=== PATIENT | female | born 1995 | race Caucasian/White ===

== ENCOUNTER 2017-01-04 20:15 | Emergency (ER) | payer OTHER ==
[~2017-01-04] VITALS: Ht 152.4 cm; Wt 54.1 kg
[~2017-01-04 20:15] MED LIST: ACET500C5 PO; ALBU8.5H3 INH; CEPH-443 PO; PRENAT PO
[2017-01-04 20:21] VITALS: Ht 152.4 cm; Wt 54.1 kg
[2017-01-04] MEDS ORDERED: ACETAMINOPHEN 500 MG TAB PO STA (21:04)
[2017-01-04 21:46] LABS: BASOPHIL # 0.1 10^3/ul (0.0-0.1); EOSINOPHILS # 0.1 10^3/ul (0.0-0.5); EOSINOPHILS % 1.4 % (0.0-7.0); HEMATOCRIT 35.3 % (37.0-47.0); LYMPHOCYTES # 1.2 10^3/ul (0.8-2.9); LYMPHOCYTES % 15.8 % (18.0-55.0); MEAN CORPUSCULAR HEMOGLOBIN 30.9 pg (29.0-33.0); MEAN PLATELET VOLUME 10.4 fl (7.4-10.4); MONOCYTE # 0.5 10^3/ul (0.3-0.9); MONOCYTES % 5.9 % (0.0-13.0); NEUTROPHIL # 5.9 10^3/ul (1.6-7.5); NEUTROPHILS % 75.6 % (30.0-74.0); PLATELET COUNT 185 10^3/UL (140-415); RED BLOOD COUNT 3.88 10^6/ul (4.20-5.40); RED CELL DISTRIBUTION WIDTH 12.6 % (11.5-14.5); WHITE BLOOD COUNT 7.9 10^3/ul (4.8-10.8)
--- NOTE | 2017-01-04 21:46 | ERD ---
ER Documentation Chief Complaint Date/Time DATE: 01/04/17 TIME: 21:39 Chief Complaint abdominal pain x 1 day, states 16 weeks HPI 21-year-old female presents to emergency department for complaints of lower abdominal pain started today. Patient describes the pain as cramping pain, 6/ 10 scale, not better or worse with anything. Patient is 1 para 0 0. Patient is approximately 16 weeks . Patient denies any vaginal bleeding. Patient denies any flank pain. Patient denies any fever or chills. Patient denies any nausea or vomiting. ROS All systems reviewed and are negative except as per history of present illness. Medications Home Meds Active Scripts Multivit/Min/Fol Ac/Iron/Pren* ( S*) 1 Tab Tab, 1 TAB PO DAILY, #30 TAB Prov:FARZANEH HICKS 11/29/16 Acetaminophen* (Tylophen*) 500 Mg Capsule, 1 CAP PO Q6H Y for PAIN AND OR ELEVATED TEMP, #20 CAP Prov:FARZANEH HICKS 11/29/16 Cephalexin* (Keflex*) 500 Mg Capsule, 500 MG PO QID for 5 Days, CAP Prov:MARAHILABANPHILLIPAR F 11/29/16 Reported Medications Albuterol Sulfate* (Proair HFA*) 8.5 Gm Hfa.aer.ad, 2 PUFF INH Q4H Y for WHEEZING AND SOB, INH 01/03/14 Cephalexin* (Keflex*) 500 Mg Capsule, 500 MG PO TID, CAP 01/03/14 Allergies Allergies: Coded Allergies: No Known Allergy (Unverified , 01/04/17) PMhx/Soc Medical and Surgical Hx: pt denies Medical Hx, pt denies Surgical Hx History of Surgery: No (KIDNEY) Hx Miscellaneous Medical Probl: No Hx Alcohol Use: No Hx Substance Use: No Hx Tobacco Use: No Smoking Status: Never smoker FmHx Family History: No coronary disease, No diabetes, No other Physical Exam Vitals Vital Signs Date Time Temp Pulse Resp B/P Pulse Ox O2 Delivery O2 Flow Rate FiO2 01/04/17 20:21 99.1 100 20 134/74 100 Physical Exam GENERAL: The patient is well developed and appropriate for usual state of health, in no apparent distress. CHEST: Clear to auscultation bilaterally. There are no rales, wheezes or rhonchi. HEART: Regular rate and rhythm. No murmurs, clicks, rubs or gallops. No S3 or S4. ABDOMEN: Soft, nontender and nondistended. Good bowel sounds. No rebound or guarding. No gross peritonitis. No gross organomegaly or masses. No Pollock sign or McBurney point tenderness. BACK: No midline or flank tenderness. EXTREMITIES: Equal pulses bilaterally. There is no peripheral clubbing, cyanosis or edema. No focal swelling or erythema. Full range of motion. Grossly neurovascularly intact. NEURO: Alert and oriented. Cranial nerves 2-12 intact. Motor strength in all 4 extremities with 5/5 strength. Sensation grossly intact. Normal speech and gait. SKIN: There is no apparent rash or petechia. The skin is warm and dry. HEMATOLOGIC AND LYMPHATIC: There is no evidence of excessive bruising or lymphedema. No gross cervical, axillary, or inguinal lymphadenopathy. Result Diagram: 01/04/172116 Results 24 hrs Laboratory Tests Test 01/04/17 21:17 White Blood Count 7.910^3/ul Red Blood Count 3.8810^6/ul Hemoglobin 12.0g/dl Hematocrit 35.3% Mean Corpuscular Volume 91.0fl Mean Corpuscular Hemoglobin 30.9pg Mean Corpuscular Hemoglobin Concent 34.0g/dl Red Cell Distribution Width 12.6% Platelet Count 49038^3/UL Mean Platelet Volume 10.4fl Neutrophils % 75.6% Lymphocytes % 15.8% Monocytes % 5.9% Eosinophils % 1.4% Basophils % 1.0% Nucleated Red Blood Cells % 0.0/100WBC Neutrophils # 5.910^3/ul Lymphocytes # 1.210^3/ul Monocytes # 0.510^3/ul Eosinophils # 0.110^3/ul Basophils # 0.110^3/ul Nucleated Red Blood Cells # 0.010^3/ul Urine Color YELLOW Urine Clarity CLEAR Urine pH 6.0 Urine Specific Munson 1.010 Urine Ketones TRACEmg/dL Urine Nitrite NEGATIVEmg/dL Urine Bilirubin NEGATIVEmg/dL Urine Urobilinogen NEGATIVEmg/dL Urine Leukocyte Esterase NEGATIVELeu/ul Urine Hemoglobin NEGATIVEmg/dL Urine Glucose NEGATIVEmg/dL Urine Total Protein NEGATIVEmg/dl Beta HCG, Quantitative 74873.0mIU/ml Current Medications Medications (Trade) Dose Ordered Sig/Karina Route PRN Reason Start Time Stop Time Status Last Admin Dose Admin Acetaminophen (Tylenol Tab) 500 mg ONCE STAT PO 01/04/17 21:04 01/04/17 21:05 DC 01/04/17 21:16 Patient was given medication for pain here in emergency department, after treatment, patient verbalized feeling much better. Patient's pain is improved. PROCEDURE: ULTRASOUND OBSTETRICAL CLINICAL INDICATION: 21-year-old female with pelvic pain. TECHNIQUE: Multiple sonographic images of the pelvis were obtained. The images were reviewed on a PACS workstation. COMPARISON: No prior studies are available for comparison. FINDINGS: The cervix is not well visualized. There is a single viable intrauterine gestation. Cardiac activity is present with 136 beats per minute. There is a vertex presentation. Measurements were made in order to determine age. The results are as follows: BPD = 3.58 cm, HC = 12.66 cm, AC = 10.49 cm, FL = 1.96 cm. This yields and estimated gestational age of approximately 16 weeks 3 days. The estimated date of delivery is June 18, 2017. The EFW = 148 +/- 22 g. The GP is 73%. The placenta is posterior. There is no evidence for an abruption or placenta previa. There is a an adequate amount of amniotic fluid with a maximal vertical pocket of 3.7 cm. IMPRESSION: Single viable intrauterine gestation of approximately 16 weeks 3 days. The estimated date of delivery is June 18, 2017. .Manjeet Wild MD, MD Date Time Electronically viewed and signed by .Manjeet Wild MD, on 01/05/2017 00:30 .M/ CC: JULIO ROTHMAN TOP PRECIPITATOR OPERATOR HELPER Procedures/MDM Medical Decision Making: Patient symptoms most likely is consistent with the growing , possible musculoskeletal pain. No leukocytosis, no bandemia , patient does not have any fever. Low suspicion for any acute abdominal process. Patient's ultrasound shows a viable . No urinary tract infection noted. There is low suspicion for abdominal emergencies at this time. Patients abdominal exam is normal at this time. Patients radiology exam does not show any abdominal emergencies at this time. There is low suspicion for appendicitis, cholecystitis, abdominal aortic aneurysms or peritonitis at this time. There is low suspicion for sepsis. Patient appears well and is hemodynamically stable. Disposition: Home. Condition: Stable Prescription Tylenol Instructions: Patient is advised to take medications as prescribed. Patient is advised to rest, increase fluid intake and do brat diet for next 1-2 days and progress as tolerated. Patient is advised that if symptoms are worse, severe abdominal pain, uncontrolled vomiting, high fever, severe flank pain, worst signs and symptoms, to return to the emergency department immediately. Otherwise, patient can follow up with OB doctor within 1-2 days. Disclaimer: Inadvertent spelling and grammatical errors are likely due to EHR/ dictation software use and do not reflect on the overall quality of patient care. Also, please note that the electronic time recorded on this note does not necessarily reflect the actual time of the patient encounter. Departure Diagnosis: Primary Impression: Pelvic pain Condition: Stable Patient Instructions: Pelvic Pain In : Unclear (2-3 Trimester) Additional Instructions: Patient is advised to take medications as prescribed. Patient is advised to rest , increase fluid intake and do brat diet for next 1-2 days and progress as tolerated. Patient is advised that if symptoms are worse, severe abdominal pain , uncontrolled vomiting, high fever, severe flank pain, worst signs and symptoms , to return to the emergency department immediately. Otherwise, patient can follow up with OB doctor within 1-2 days. JULIO ROTHMAN NP Jan 04, 2017 21:45
[2017-01-04 21:47] LABS: ADD UMIC NO; UR ASCORBIC ACID NEGATIVE (NEGATIVE); UR BILIRUBIN (Dip) NEGATIVE (NEGATIVE); UR BLOOD (Dip) NEGATIVE (NEGATIVE); UR CLARITY CLEAR (CLEAR); UR COLOR YELLOW (YELLOW); UR GLUCOSE (Dip) NEGATIVE (NEGATIVE); UR KETONES (Dip) TRACE mg/dL (NEGATIVE); UR LEUKOCYTE ESTERASE (Dip) NEGATIVE Leu/ul (NEGATIVE); UR NITRITE (Dip) NEGATIVE (NEGATIVE); UR TOTAL PROTEIN (Dip) NEGATIVE (NEGATIVE); UR UROBILINOGEN (Dip) NEGATIVE (NEGATIVE)
--- NOTE | 2017-01-05 00:30 | RADRPT ---
PROCEDURE: ULTRASOUND OBSTETRICAL CLINICAL INDICATION: 21-year-old female with pelvic pain. TECHNIQUE: Multiple sonographic images of the pelvis were obtained. The images were reviewed on a PACS workstation. COMPARISON: No prior studies are available for comparison. FINDINGS: The cervix is not well visualized. There is a single viable intrauterine gestation. Cardiac activit y is present with 136 beats per minute. There is a vertex presentation. Measurements were made in or belinda to determine age. The results are as follows: BPD = 3.58 cm, HC = 12.66 cm, AC = 10.49 cm, FL = 1.96 cm. This yields and estimated gestational ag e of approximately 16 weeks 3 days. The estimated date of delivery is June 18, 2017. The EFW = 148 +/- 22 g. The GP is 73%. The placenta is posterior. There is no evidence for an abruption or placenta previa. There is a an adequate amount of amniotic fluid with a maximal vertical pocket of 3.7 cm. IMPRESSION: Single viable intrauterine gestation of approximately 16 weeks 3 days. The estimated date of delive ry is June 18, 2017. .Manjeet Wild MD, Date Time Electronically viewed and signed by .Manjeet Wild MD, on 01/05/2017 00:30 .M/
[2017-01-05] MEDS ORDERED: ACET500C5 PO (00:44)
== END 2017-01-05 00:56 | disposition home or self-care (01) ==
LOC: FTE 20:15
DX: O26.892 Other specified pregnancy related conditions, second trimester (principal); R10.2 Pelvic and perineal pain; Z3A.16 16 weeks gestation of pregnancy
CPT/HCPCS: 76805; 81003; 84702; 85025; 86900; 86901; Z7502; Z7610

== ENCOUNTER 2017-02-10 09:51 | Inpatient (IN) | payer OTHER ==
[~2017-02-10] VITALS: Ht 152.4 cm; Wt 57.3 kg
[2017-02-10 10:46] VITALS: Ht 152.4 cm; Wt 57.3 kg
[2017-02-10 10:47] VITALS: BP 115/70; PULSE 115; RESP 20
--- NOTE | 2017-02-10 10:58 | TRIAGE ---
OB Triage Datetime Report Generated by CPN: 02/10/2017 10:58 Datetime: 02/10/2017 10:35 Assessment Type: Triage Maternal Assessment Level of Consciousness: Fully Conscious DTR's/Clonus: DTRs 2+; No Clonus Headache: Denies Blurred Vision: No Respiratory Effort: Unlabored; Regular Rhythm; Equal Expansion Breath Sounds, Left: Clear and Equal Breath Sounds, Right: Clear and Equal Nausea/Vomiting: Denies RUQ Epigastric Pain: Denies Lower Extremities Edema: None Degree: None Upper Extremities Edema: None Degree: None Facial Edema: None Fall Risk Assessment History of Falling: (0) No Secondary Diagnosis: (0) No Ambulatory Aid: (0) Bedrest/Nurse Assist IV Therapy: (0) No Gait: (0) Normal/Bedrest/Immobile Mental Status: (0) Oriented to Own Ability Fall Score: 0 Fall Risk Score Definition: No Risk: No action required Datetime: 02/10/2017 10:30 Time of Arrival: 02/10/2017 09:45 EGA: 21.0 Arrived By: Wheelchair Arrived From: Home Chief Complaint: pt. came to hospital c/o fever, right katherine since yesterday Movement: Present Contractions: Denies/Absent Rupture of Membranes: Denies Vaginal Bleeding: None Vaginal Discharge: Denies Recent Sexual Intercouse: Denies Abdominal Trauma: Not Applicable Patient Complaints: Vomiting; Fever Additional Patient Complaints: r/o ptl Time Provider Notified: 02/10/2017 10:24 Provider Notified: Datetime: 02/10/2017 10:20 Heart Rate Comments: fhr 175
[2017-02-10] MEDS ORDERED: ACETAMINOPHEN 500 MG TAB PO PRN (11:00)
[2017-02-10] MEDS: LACTATED RINGER'S 1,000 ML IV SCH ×2 (11:35→20:47)
[2017-02-10] MEDS: AMPICILLIN/SULB 3 GM/NS (PMX) 100 ML IVPB SCH ×3 (11:55→23:55)
[2017-02-10] MEDS: ACETAMINOPHEN 325 MG TAB PO PRN ×3 (11:58→18:09)
[2017-02-10] MEDS ORDERED: ACETAMINOPHEN 325 MG TAB PO PRN (12:00)
--- NOTE | 2017-02-10 14:39 | HP ---
Date/Time of Note Date/Time of Note DATE: 02/10/17 TIME: 14:31 OB - History Hx of Present Free Text/Dictation C/O onset of fever and chill since day before has hx of one underdeveloped kidney Last Menstrual Period: Sep 15, 2016 Estimated Due Date: Jun 23, 2017 : 1 Para: 0 Care: Good Care Ultrasounds: Normal mid trimester US Obstetrical Complications: None Medical Complications: None, Other (+ CT ) Past Family/Social History * Past Medical, Surgical, Family and Obstetric Histories reviewed from chart. Blood Type: O+ Rubella: immune RPR/VDRL: Negative GBS Status: Unknown HBsAG: Negative OB Admission Exam Vital Signs Vital Signs Vital Signs Date Time Temp Pulse Resp B/P Pulse Ox O2 Delivery O2 Flow Rate FiO2 02/10/17 10:47 100.3 115 20 115/70 Physical Exam HEENT: WNL Heart: Rhythm Normal Lungs: Clear, Equal Abdomen: WNL Extremities: Normal Reflexes: Normal Cervical Dilatation: None Effacement: 0% Station: -3 Membranes: Intact Heart Rate: 150's Contractions on Admission: None Last 72 hours Lab Results CBC & BMP 02/10/17 11:18 OB Assessment/Plan Reason for admission: other (Pyelonephritis ) Other Assessment: 21 weeks gestation Other plan: IV Abs reRx CT continue to monor vital signs MO BANSAL MD Feb 10, 2017 14:39
[2017-02-10] MEDS ORDERED: AZITHROMYCIN 250 MG TAB PO ONE (15:00)
--- NOTE | 2017-02-10 15:38 | RADRPT ---
PROCEDURE: Retroperitoneal US. CLINICAL INDICATION: underdeveloped kidney, TECHNIQUE: Multiple sonographic images of the retroperitoneum were obtained. The images were revi ewed on a PACS workstation. COMPARISON: No prior studies are available for comparison. FINDINGS: The right kidney measures 13.0 x 7.3 x 7.8 cm. The left kidney measures 5.4 x 1.3 x 1.8 cm. The renal parenchymal echotexture is normal on the right and increased on the left. There is moderate right hydronephrosis. There is no focal renal mass or calcification seen. There are multiple simple renal cysts on the left measuring up to 1.1 cm. The bladder is unremarkable. The right ureteral jet is identified. The left ureteral jet is not iden tified. A gravid uterus is noted. IMPRESSION: Moderate right hydronephrosis. Markedly atrophic and echogenic left kidney without a visualized left ureteral jet in the bladder. T he left kidney may be nonfunctional. RPTAT: EE Physician Fabrice Date Time Electronically viewed and signed by Physician Fabrice on 02/10/2017 15:38 /
[2017-02-10] MEDS ORDERED: MEPERIDINE 50 MG INJ IV ONE (17:00)
[2017-02-11] MEDS: ACETAMINOPHEN 325 MG TAB PO PRN ×3 (01:39→19:51)
[2017-02-11] MEDS: LACTATED RINGER'S 1,000 ML IV SCH ×3 (05:32→19:00)
[2017-02-11] MEDS: AMPICILLIN/SULB 3 GM/NS (PMX) 100 ML IVPB SCH ×4 (05:32→23:45)
[2017-02-11] MEDS: MEPERIDINE 25 MG INJ IV PRN ×3 (10:55→20:05)
[2017-02-11] MEDS: ONDANSETRON 4 MG INJ IV PRN ×2 (10:55→15:28)
--- NOTE | 2017-02-11 17:51 | PN ---
Date/Time of Note Date/Time of Note DATE: 02/11/17 TIME: 17:46 OB Subjective Subjective Subjective C/O R flank pain OB Objective Objective Objective Maximum temperature in the past 24 hours was 103.1 at 0 100 a.m. February 11 Currently has stable vital signs General physical exam is unchanged Still has right CVA tenderness On electronic monitoring no contractions seen Patient has elevated white count with a left shift Microbiology report is positive urine culture with gram negative rods Renal ultrasound left kidney appear to be atrophic and right kidney appear to have moderate hydronephrosis OB Assessment/Plan Other Assessment: Pyelonephritis at 21 weeks 21 weeks gestation Other plan: We will continue with IV antibiotics Obtain sensitivity report Provide supportive care including pain medication MO BANSAL MD Feb 11, 2017 17:51
[2017-02-12] MEDS: MEPERIDINE 25 MG INJ IV PRN ×4 (01:50→22:47)
[2017-02-12] MEDS: LACTATED RINGER'S 1,000 ML IV SCH ×2 (02:24→11:50)
[2017-02-12] MEDS: AMPICILLIN/SULB 3 GM/NS (PMX) 100 ML IVPB SCH ×2 (06:02→11:50)
[2017-02-12] MEDS: ACETAMINOPHEN 325 MG TAB PO PRN ×4 (06:16→22:40)
--- NOTE | 2017-02-12 09:27 | RADRPT ---
PROCEDURE: US OB AND ULTRASOUND CERVIX. CLINICAL INDICATION: Size and dates TECHNIQUE: Multiple sonographic images of the pelvis and gravid uterus were obtained. The images were reviewed on a PACS workstation. Transvaginal images of the cervix were also obtained. COMPARISON: No prior studies are available for comparison. FINDINGS: The cervix has a length of 3.2 cm. There is a single viable intrauterine gestation. Cardiac activity is present with 131 beats per min jimmy. There is a breech presentation. The placenta is posterior. There is no evidence for an abruption or placenta previa. Measurements were made in order to determine age. The results are as follows: BPD =5.0 cm HC =18.6 cm AC =16.4 cm FL =3.1 cm Estimated gestational age of approximately 20 weeks and 5 days based on ultrasound measurements. Clinical age: 21 weeks and 2 days. The estimated date of delivery is 06/27/17, based on ultrasound measurements. The EFW = 369 g, 17%, based on LMP age. RPTAT: AA IMPRESSION: Single viable intrauterine gestation of approximately 20 weeks and 5 days based on ultrasound measu rements. .Boni Jolley MD, Date Time Electronically viewed and signed by .Boni Jolley MD, MD on 02/12/2017 09:27 .S/
[2017-02-12] MEDS: SOD CHLORIDE 0.9% 1,000 ML IV SCH (13:51)
[2017-02-12] MEDS: CEFTRIAXONE 1 GM/50 ML (PMX) 50 ML IVPB SCH (13:51)
--- NOTE | 2017-02-12 17:06 | PN ---
Date/Time of Note Date/Time of Note DATE: 02/12/17 TIME: 16:58 OB Subjective Subjective Subjective Patient still complaining of right flank pain Generally feels slightly better Patient complaint of cough since admission OB Objective Objective Objective Maximum temperature in the past 24 hours 100.6 this a.m. Physical exam is unchanged Lungs were clear to auscultation percussion Patient cervical length was 3.2 and estimation of weight is between 350 entry 400 g Patient had considerable decrease in white count on CBC white count appears to be in leukopenic range Patient also have mild thrombocytopenia Urine culture were positive for Citrobacter sensitive to Rocephin IV antibiotics were changed OB Assessment/Plan Other Assessment: Pyelonephritis at 21 weeks Other plan: IV antibiotics were changed to Rocephin Continue supportive care Chest x-ray is ordered for complaint of cough We will try to ambulate patient out of bed MO BANSAL MD Feb 12, 2017 17:06
--- NOTE | 2017-02-12 17:42 | RADRPT ---
PROCEDURE: XR Chest. CLINICAL INDICATION: Pyelonephritis, diminished lung sounds TECHNIQUE: PA and lateral views of the chest were obtained. COMPARISON: 03/12/2011 FINDINGS: The cardiomediastinal silhouette is within normal limits. There is minimal bibasilar atelectasis. A small pleural effusion is seen on the right. The visualized osseous structures are intact. IMPRESSION: Minimal bibasilar atelectasis. Small right pleural effusion. RPTAT: VV .Flash Andrews MD, Date Time Electronically viewed and signed by .Flash Andrews MD, on 02/12/2017 17:42 .O/
[2017-02-13] MEDS ORDERED: morphine 2 MG INJ IV ONE
[2017-02-13] MEDS: SOD CHLORIDE 0.9% 1,000 ML IV SCH (05:45)
[2017-02-13] MEDS: MEPERIDINE 25 MG INJ IV PRN ×3 (06:18→17:01)
[2017-02-13] MEDS: ACETAMINOPHEN 325 MG TAB PO PRN ×3 (06:29→17:01)
[2017-02-13] MEDS: CEFTRIAXONE 1 GM/50 ML (PMX) 50 ML IVPB SCH (14:07)
--- NOTE | 2017-02-13 14:12 | PN ---
Date/Time of Note Date/Time of Note DATE: 02/13/17 TIME: 14:11 OB Subjective Subjective Subjective Patient with complaint of right flank pain OB Objective Objective Objective T-max is 103.2 which occurred at 6:00 in the morning General physical exam is unchanged Patient still has severe right CVA tenderness Antibiotics recently changed OB Assessment/Plan Other Assessment: Pyelonephritis around 20-23 weeks Other plan: Continue IV antibiotics for at least 24 more hours and watch temperature Continue to obtain blood culture results If patient remains nonresponsive to IV antibiotics we will obtain ID consult MO BANSAL MD Feb 13, 2017 14:12
[2017-02-14] MEDS: SOD CHLORIDE 0.9% 1,000 ML IV SCH (00:58)
[2017-02-14] MEDS: MEPERIDINE 25 MG INJ IV PRN ×2 (00:58→12:09)
--- NOTE | 2017-02-14 12:57 | PN ---
Date/Time of Note Date/Time of Note DATE: 02/14/17 TIME: 12:53 OB Subjective Subjective Subjective still C/O Right flank pain OB Objective Objective Objective VSS afebrile >24 hours P/E normal patient still has R CVA tenderness OB Assessment/Plan Other Assessment: pyelonephritis at 21 / 22 weeks ; slowly resolving patient is still tachycardic Other plan: continue to ambulate D.C IV keep hep lock continue IV ABs MO BANSAL MD Feb 14, 2017 12:57
[2017-02-14] MEDS: CEFTRIAXONE 1 GM/50 ML (PMX) 50 ML IVPB SCH (13:28)
[2017-02-14] MEDS ORDERED: ACETAMINOPHEN 1000MG/100ML IV 100 ML IVPB SCH (14:00)
[2017-02-14] MEDS: ACETAMINOPHEN 1000MG/100ML IV 100 ML IVPB PRN (17:16)
[2017-02-15] MEDS: ACETAMINOPHEN 1000MG/100ML IV 100 ML IVPB PRN ×2 (02:28→17:07)
[2017-02-15] MEDS: CEFTRIAXONE 1 GM/50 ML (PMX) 50 ML IVPB SCH (14:04)
--- NOTE | 2017-02-15 16:46 | PN ---
Date/Time of Note Date/Time of Note DATE: 02/15/17 TIME: 16:45 OB Subjective Subjective Subjective Patient has no more subjective feeling of pain OB Objective Objective Objective Afebrile over 24 hours General physical exam is unchanged Still has mild right CVA tenderness OB Assessment/Plan Other Assessment: Slowly resolving pyelonephritis is 21/22 weeks Other plan: Continue IV antibiotics until next day Changed to p.o. antibiotics the following MO BANSAL MD Feb 15, 2017 16:46
[2017-02-16] MEDS: ACETAMINOPHEN 1000MG/100ML IV 100 ML IVPB PRN (00:18)
[2017-02-16] MEDS: CEFTRIAXONE 1 GM/50 ML (PMX) 50 ML IVPB SCH (13:48)
--- NOTE | 2017-02-16 15:55 | PN ---
Date/Time of Note Date/Time of Note DATE: 02/16/17 TIME: 15:53 OB Subjective Subjective Subjective No more complaint of pain Had right flank pain day prior which resolved OB Objective Objective Objective Afebrile over 48 hours Vital signs are stable General physical exam is unchanged OB Assessment/Plan Other Assessment: Slowly resolving pyelonephritis 2121 weeks Absent normal tissue of the left kidney Other plan: We will change to p.o. medications Continue p.o. meds for pain Consider discharging patients in a.m. MO BANSAL MD Feb 16, 2017 15:55
[2017-02-16] MEDS: NITROFURANTOIN (SR) 100 MG CAP PO SCH (21:10)
[2017-02-17] MEDS: ACETAMINOPHEN 325 MG TAB PO PRN ×2 (03:47→14:40)
[2017-02-17] MEDS: NITROFURANTOIN (SR) 100 MG CAP PO SCH (09:11)
--- NOTE | 2017-02-17 15:58 | DS ---
Date/Time of Note Date/Time of Note DATE: 02/17/17 TIME: 15:57 Obstetrical Discharge Record Final Diagnosis Final Diagnosis: not delivered Other Final Diagnosis Pyelonephritis around 20-21 weeks Condition on Discharge Physical Assessment Last Vitals: See nurse's notes Afebrile for over 3 days Voiding: Yes Bowel Movement: Yes Breast: Soft, non-tender, Filling Fundus: Firm Abdomen and Incision: Bone is soft bowel sounds present Fundus is above bellybutton heart tones are positive Has mild CVA tenderness Episiotomy: Not applicable Calf Tenderness: No Patient Condition: Good MO BANSAL MD Feb 17, 2017 15:58
--- NOTE | 2017-02-17 15:58 | DS ---
Date/Time of Note Date/Time of Note DATE: 02/17/17 TIME: 15:57 Obstetrical Discharge Record Final Diagnosis Final Diagnosis: not delivered Other Final Diagnosis Pyelonephritis around 20-21 weeks Condition on Discharge Physical Assessment Last Vitals: See nurse's notes Afebrile for over 3 days Voiding: Yes Bowel Movement: Yes Breast: Soft, non-tender, Filling Fundus: Firm Abdomen and Incision: Bone is soft bowel sounds present Fundus is above bellybutton heart tones are positive Has mild CVA tenderness Episiotomy: Not applicable Calf Tenderness: No Patient Condition: Good MO BANASL MD Feb 17, 2017 15:58
--- NOTE | 2017-02-17 15:59 | DS ---
Date/Time of Note Date/Time of Note DATE: 02/17/17 TIME: 15:58 Discharge Summary Admission/Discharge Info Admit Date/Time Feb 10, 2017 at 10:35 Discharge Date/Time February 17, 2017 Discharge Diagnosis Resolved pyelonephritis at 2020 weeks Patient Condition: Good Procedures None Hx of Present Illness 21-year-old female admitted with pyelonephritis which is slowly resolving on IV antibiotics Patient states stable on p.o. antibiotics and subsequently discharged home Hospital Course Uncomplicated Home Meds Active Scripts Acetaminophen* (Tylophen*) 500 Mg Capsule, 1 CAP PO Q6H Y for PAIN AND OR ELEVATED TEMP, #20 CAP Prov:JULIO ROTHMAN HEAD STOCK OPERATOR 01/05/17 Multivit/Min/Fol Ac/Iron/Pren* ( S*) 1 Tab Tab, 1 TAB PO DAILY, #30 TAB Prov:PASILABAN,PHILLIPAR F 11/29/16 Acetaminophen* (Tylophen*) 500 Mg Capsule, 1 CAP PO Q6H Y for PAIN AND OR ELEVATED TEMP, #20 CAP Prov:PASILABAN,PHILLIPAR F 11/29/16 Cephalexin* (Keflex*) 500 Mg Capsule, 500 MG PO QID for 5 Days, CAP Prov:PASILABAN,KLAR F 11/29/16 Reported Medications Albuterol Sulfate* (Proair HFA*) 8.5 Gm Hfa.aer.ad, 2 PUFF INH Q4H Y for WHEEZING AND SOB, INH 01/03/14 Cephalexin* (Keflex*) 500 Mg Capsule, 500 MG PO TID, CAP 01/03/14 Follow-up Plan Within 1 week in the clinic Primary Care Provider Ev Lockhart MD Time spent on discharge: > 30 minutes MO BANSAL MD Feb 17, 2017 15:59
--- NOTE | 2017-02-17 16:01 | PD.PPDC ---
[employer] INFORMATION CLERK Discharge Instruction Provider Information Physician Information 21-year-old female admitted with pyelonephritis and Pyelonephritis is slowly resolving IV antibiotic Diagnosis Final Diagnosis: Pyelonephritis at 2020 weeks Condition Patient Condition: Good Diet Diet: Resume Regular Diet Activity/Restrictions Activity: Normal Activity May Shower Follow-up Follow-up with Physician: 2, 3, Day/Days (In clinic for follow-up) Return to clinic for INFORMATION ASSURANCE OFFICER Instructions: Fever greater than 101 Chills Comment: Referred back to hospital in case of fever and chills or severe flank pain MO BANSAL MD Feb 17, 2017 16:01
--- NOTE | 2017-02-17 16:01 | PD.PPDC ---
KNOT CUTTER Discharge Instruction Provider Information Physician Information 21-year-old female admitted with pyelonephritis and Pyelonephritis is slowly resolving IV antibiotic Diagnosis Final Diagnosis: Pyelonephritis at 2020 weeks Condition Patient Condition: Good Diet Diet: Resume Regular Diet Activity/Restrictions Activity: Normal Activity May Shower Follow-up Follow-up with Physician: 2, 3, Day/Days (In clinic for follow-up) Return to clinic for VENEER JOINTER Instructions: Fever greater than 101 Chills Comment: Referred back to hospital in case of fever and chills or severe flank pain MO BANSAL MD Feb 17, 2017 16:01
--- NOTE | 2017-02-17 16:01 | PD.PPDC ---
GRAVURE PRESS SET UP OPERATOR Discharge Instruction Provider Information Physician Information 21-year-old female admitted with pyelonephritis and Pyelonephritis is slowly resolving IV antibiotic Diagnosis Final Diagnosis: Pyelonephritis at 2020 weeks Condition Patient Condition: Good Diet Diet: Resume Regular Diet Activity/Restrictions Activity: Normal Activity May Shower Follow-up Follow-up with Physician: 2, 3, Day/Days (In clinic for follow-up) Return to clinic for FULL STACK NET DEVELOPER Instructions: Fever greater than 101 Chills Comment: Referred back to hospital in case of fever and chills or severe flank pain MO BANSAL MD Feb 17, 2017 16:01
[2017-02-17] MEDS ORDERED: MACBID PO (16:03)
== END 2017-02-17 18:00 | disposition home or self-care (01) | DRG 781 ==
LOC: L-D 09:51 → OBT 09:51 → OBG 10:35 → OBT 10:36
PROVIDERS: ADMIT Obstetrics & Gynecology; ATTEND Obstetrics & Gynecology
DX: O23.02 Infections of kidney in pregnancy, second trimester (principal); N13.30 Unspecified hydronephrosis; Z3A.21 21 weeks gestation of pregnancy; O99.89 Other specified diseases and conditions complicating pregnancy, childbirth and the puerperium
CPT/HCPCS: 71020; 76775; 76815; 76817; 80053; 80307; 81001; 85025; 87040; 87086; G0463; J0131; J0295; J0696; J2175; J2405; J7030; J7120

== ENCOUNTER 2017-03-18 16:04 | Outpatient (CLI) | payer OTHER ==
[~2017-03-18] VITALS: Ht 152.4 cm; Wt 60.0 kg
[~2017-03-18 16:04] MED LIST changes: -CEPH-443 PO; +MACBID PO
[2017-03-18 16:49] VITALS: BP 109/66; PULSE 94; RESP 18; Ht 152.4 cm; Wt 60.0 kg
[2017-03-18] MEDS ORDERED: NITR-58 PO (16:49)
[2017-03-18] MEDS ORDERED: CALC600T24 PO (16:49)
[2017-03-18] MEDS ORDERED: FER325 PO (16:49)
--- NOTE | 2017-03-18 17:49 | RADRPT ---
PROCEDURE: US cervix CLINICAL INDICATION: labor TECHNIQUE: Limited OB ultrasound was performed to evaluate the cervix COMPARISON: No prior studies are available for comparison. FINDINGS: There is a single live intrauterine . Normal cardiac activity is identified at a rat e of 156 beats per minute. 158 there are presentation is cephalic. Placenta is posterior grade 1. The cervix is closed and measures 4.0 cm. No funneling or dilatation is seen IMPRESSION: Cervix is closed and measures 4.0 cm RPTAT: HH .Rob Mcclellan MD, MD Date Time Electronically viewed and signed by .Rob Mcclellan MD, on 03/18/2017 17:48 .W/
[2017-03-18 18:13] LABS: ADD UMIC NO; UR ASCORBIC ACID NEGATIVE (NEGATIVE); UR BILIRUBIN (Dip) NEGATIVE (NEGATIVE); UR BLOOD (Dip) NEGATIVE (NEGATIVE); UR CLARITY SLIGHTLY CLOUDY (CLEAR); UR COLOR YELLOW (YELLOW); UR GLUCOSE (Dip) NEGATIVE (NEGATIVE); UR KETONES (Dip) NEGATIVE (NEGATIVE); UR LEUKOCYTE ESTERASE (Dip) NEGATIVE Leu/ul (NEGATIVE); UR NITRITE (Dip) NEGATIVE (NEGATIVE); UR RBC 0 /HPF (0-5); UR SPECIFIC GRAVITY (Dip) 1.014 (1.003-1.030); UR SQUAMOUS EPITHELIAL CELL FEW /HPF (FEW); UR TOTAL PROTEIN (Dip) NEGATIVE (NEGATIVE); UR UROBILINOGEN (Dip) NEGATIVE (NEGATIVE)
--- NOTE | 2017-03-19 00:28 | PN ---
Triage Information Date/Time March 18, 2017 Reason for visit: Suspected contractions noted in the clinic today by provider. Patient does not feel any contractions, leaking of fluid or any other complaints. She was sent for rule out labor Weeks of Gestation 26 and 1 day /Para 1 para 0 Diabetes: none Hypertention: none Additional information 21-year-old with a patent 26 weeks and 1 day with care with Dr. Mccoy currently on Macrobid for pyelonephritis. She is on prophylactic dose 100 mg daily dose. She went to the clinic today for visit however during examination by [employer] noted and suspected to have uterine contractions. Patient was sent to labor and delivery for observation evaluation and rule out labor. Patient denies feeling any contractions, leaking of fluid and vaginal bleeding or any other complaints. There is no complication during her course. Objective Vital Signs Date Time Temp Pulse Resp B/P Pulse Ox O2 Delivery O2 Flow Rate FiO2 03/18/17 16:49 98.7 94 18 109/66 97 Room Air Heart Rate: 130's Heart Rate Comments 130s Exam General appearance: Alert and oriented 4. Patient does not appear to be in any acute distress. Abdomen: Soft, gravid, fundal height consistent with gestational age. Non- tenderness, no rebound tenderness, no guarding, no CVA tenderness NST: Category 1 and appropriate for gestational age. No contraction noted on the monitor Cervical length 4 cm, no funneling Results/Medications Results 24 hrs Laboratory Tests Test 03/18/17 16:15 Urine Color YELLOW Urine Clarity SLIGHTLY CLOUDY A Urine pH 7.0 Urine Specific [place] 1.014 Urine Ketones NEGATIVE Urine Nitrite NEGATIVE Urine Bilirubin NEGATIVE Urine Urobilinogen NEGATIVE Urine Leukocyte Esterase NEGATIVE Urine Microscopic RBC 0 Urine Microscopic WBC 1 Urine Squamous Epithelial Cells FEW Urine Hemoglobin NEGATIVE Urine Glucose NEGATIVE Urine Total Protein NEGATIVE Disposition: Discharge Assessment/Plan Strict labor precautions and kick count and follow-up with an OB office within 24-48 hours discussed with the patient Patient verbalized understanding. All questions were answered FRANCISCO CORDERO MD Mar 19, 2017 00:28
== END 2017-03-18 18:39 | disposition home or self-care (01) ==
LOC: OBT 16:04 → L-D 16:06 → OBT 18:39
PROVIDERS: ATTEND Obstetrics & Gynecology
DX: O62.9 Abnormality of forces of labor, unspecified (principal); Z3A.26 26 weeks gestation of pregnancy
CPT/HCPCS: 76817; 81001; Z7500; 81003; G0463

== ENCOUNTER 2017-04-29 12:37 | Emergency (ER) | END 2017-04-29 16:44 | disposition home or self-care (01) ==

== ENCOUNTER 2017-05-01 15:05 | Inpatient (IN) | END 2017-05-03 16:45 | disposition home or self-care (01) | DRG 781 ==

== ENCOUNTER 2017-06-11 17:10 | Outpatient (CLI) | END 2017-06-11 21:05 | disposition home or self-care (01) ==

== ENCOUNTER 2017-06-13 09:54 | Inpatient (IN) | END 2017-06-15 14:10 | disposition home or self-care (01) | DRG 775 ==

== ENCOUNTER 2017-10-05 20:55 | Emergency (ER) | END 2017-10-06 00:45 | disposition home or self-care (01) ==

== ENCOUNTER 2018-08-21 19:57 | Emergency (ER) | payer OTHER ==
[~2018-08-21] VITALS: Wt 65.0 kg
[~2018-08-21 19:57] MED LIST changes: -ACET500C5 PO; -ALBU8.5H3 INH; +IBUP-1542 PO; -MACBID PO; -PRENAT PO
[2018-08-21] MEDS ORDERED: ONDANSETRON (ODT) 4 MG TAB ODT STA (22:36)
[2018-08-21] MEDS ORDERED: KETOROLAC 30 MG INJ IM STA (22:36)
[2018-08-21] MEDS ORDERED: ACET500C5 PO (22:42)
[2018-08-21] MEDS ORDERED: AMOX500C2 PO (22:42)
--- NOTE | 2018-08-21 22:44 | ERD ---
ER Documentation Chief Complaint Chief Complaint FEVER, CHILLS, BODY ACHES X'S 3 DAYS HPI 23-year-old female presents with fever and body aches and sore throat for last 3 days. She denies cough, vomiting except for one time nonbilious nonbloody., May have been from gagging from sore throat., abdominal pain, urinary complaints. ROS All systems reviewed and are negative except as per history of present illness. Medications Home Meds Active Scripts Acetaminophen* (Tylophen*) 500 Mg Capsule, 1 CAP PO Q6H PRN for PAIN AND OR ELEVATED TEMP, #20 CAP Prov:RICHAR MAJOR MD 08/21/18 Amoxicillin* (Amoxicillin*) 500 Mg Cap, 500 MG PO TID for 10 Days, CAP Prov:RICHAR MAJOR MD 08/21/18 Ibuprofen* (Motrin*) 600 Mg Tab, 600 MG PO Q6H PRN for PAIN AND OR ELEVATED TEMP, #30 TAB Prov:JULIO ROTHMAN NP 10/06/17 Ibuprofen* (Ibuprofen*) 600 Mg Tablet, 600 MG PO Q6, #60 TAB 0 Refills Prov:MO BANSAL MD 06/14/17 Allergies Allergies: Coded Allergies: No Known Allergy (Unverified , 01/04/17) PMhx/Soc History of Surgery: No (1 KIDNEY ) Hx Miscellaneous Medical Probl: No Hx Alcohol Use: No Hx Substance Use: No Hx Tobacco Use: No Smoking Status: Never smoker Physical Exam Vitals Vital Signs Date Temp Pulse Resp B/P (MAP) Pulse Ox O2 O2 Flow FiO2 Time Delivery Rate 08/21/18 101.5 146 20 120/63 96 19:58 (82) Physical Exam Const: No acute distress Head: Atraumatic Eyes: Normal Conjunctiva ENT: Normal External Ears, Nose and Mouth. Tonsils 3+ with exudate. Uvula midline. Airway patent. Tender anterior cervical lymph nodes. Neck: Full range of motion. No meningismus. Resp: Clear to auscultation bilaterally Cardio: Regular rate and rhythm, no murmurs Abd: Soft, non tender, non distended. Normal bowel sounds Skin: No petechiae or rashes Back: No midline or flank tenderness Ext: No cyanosis, or edema Neur: Awake and alert Psych: Normal Mood and Affect Results 24 hrs Current Medications Medications Dose Sig/Karina Start Time Status Last (Trade) Ordered Route PRN Stop Time Admin Dose Reason Admin 650 mg ONCE ONCE 08/21/18 Acetaminophen PO 23:00 (Tylenol 08/21/18 23:01 Tab) Ondansetron 8 mg ONCE STAT 08/21/18 DC HCl (Zofran ODT 22:36 Odt) 08/21/18 22:38 Ketorolac 30 mg ONCE STAT 08/21/18 DC Tromethamine IM 22:36 (Toradol) 08/21/18 22:38 Amoxicillin 500 mg ONCE ONCE 08/21/18 PO 23:00 (Amoxicillin) 08/21/18 23:01 Procedures/MDM She presents with signs symptoms of exudative pharyngitis without signs of abscess, or obstruction, additional concerning signs or symptoms. She was given amoxicillin, Toradol, Tylenol will be treated with Tylenol, amoxicillin, instructions for primary care follow-up and return precautions. The patient was stable with no new complaints during the ER course. Clinically, there is no current evidence to suggest meningitis, sepsis, acute abdomen, pneumonia, stroke, acute coronary syndrome, pulmonary embolism, aortic dissection or any other emergent condition appearing to require further evaluation or hospitalization. Patient counseled regarding my diagnostic impression and care plan. Prior to discharge all questions answered. Pt agrees with treatment plan and understands strict return precautions. Pt is instructed to follow up with primary care provider within 24-48 hours. Precautionary instructions provided including instructions to return to the ER if not improving or for any worsening or changing symptoms or concerns. Disclaimer: Inadvertent spelling and grammatical errors are likely due to EHR/dictation software use and do not reflect on the overall quality of patient care. Also, please note that the electronic time recorded on this note does not necessarily reflect the actual time of the patient encounter. Departure Diagnosis: Primary Impression: Pharyngitis Pharyngitis/tonsillitis etiology: unspecified etiology Qualified Codes: J02.9 - Acute pharyngitis, unspecified Condition: Stable Patient Instructions: Pharyngitis, Strep (Presumed) Additional Instructions: Drink plenty of fluids at home. Recheck for new or worsening symptoms with primary care doctor. Okay to take ibuprofen every 6 hours as well. RICHAR MAJOR MD August 21, 2018 22:44
[2018-08-21] MEDS ORDERED: AMOXICILLIN 500 MG CAP PO ONE (23:00)
[2018-08-21] MEDS ORDERED: ACETAMINOPHEN 325 MG TAB PO ONE (23:00)
[2018-08-21 23:12] VITALS: BP 117/78; PULSE 115; RESP 20
== END 2018-08-21 23:15 | disposition home or self-care (01) ==
LOC: FTE 19:57
DX: J02.9 Acute pharyngitis, unspecified (principal)
CPT/HCPCS: 81003; 81025; 96372; J1885; Z7502; Z7610

== ENCOUNTER 2018-08-23 13:58 | Emergency (ER) | payer OTHER ==
[~2018-08-23] VITALS: Ht 157.5 cm; Wt 63.9 kg
[~2018-08-23 13:58] MED LIST changes: +ACET500C5 PO; +AMOX500C2 PO
[2018-08-23 14:08] VITALS: Ht 157.5 cm; Wt 63.9 kg
[2018-08-23] MEDS ORDERED: DEXAMETHASONE 10 MG/ML 1 ML INJ IV ONE (14:30)
[2018-08-23] MEDS ORDERED: SOD CHLORIDE 0.9% 1,000 ML IV STA (14:30)
[2018-08-23] MEDS ORDERED: CEFTRIAXONE 1 GM/50 ML (PMX) 50 ML IVPB ONE (14:30)
[2018-08-23] MEDS ORDERED: ONDANSETRON 4 MG INJ IV STA (14:30)
[2018-08-23] MEDS ORDERED: KETOROLAC 30 MG INJ IV STA (14:30)
[2018-08-23] MEDS ORDERED: MED4DP PO (16:01)
[2018-08-23] MEDS ORDERED: IBUP800T48 PO (16:01)
[2018-08-23] MEDS ORDERED: ACET325T33 PO (16:01)
[2018-08-23] MEDS ORDERED: AMOX1TAB10 PO (16:01)
[2018-08-23 16:25] VITALS: BP 102/58; PULSE 105; RESP 19
--- NOTE | 2018-08-24 12:48 | ERD ---
ER Documentation Chief Complaint Chief Complaint swollen tonsils, taking antibiotics HPI 23-year-old female presenting with a sore throat. Patient states that she was given antibiotics 2 days ago however she has been unable to tolerate the antibiotics due to the pain in her throat. She has had fever for the last 2 days as well. Denies any chest pain or shortness of breath. Denies coughing. Denies runny nose. Denies neck pain or stiffness. Has not taken medications today. Denies medical problems. NKDA. Surgical history denies. Social history denies ROS All systems reviewed and are negative except as per history of present illness. Medications Home Meds Active Scripts Acetaminophen* (Tylenol*) 325 Mg Tablet, 2 TAB PO Q8 PRN for PAIN AND OR ELEVATED TEMP, #20 TAB Prov:RAVIN CASTILLO PA-C 08/23/18 Ibuprofen* (Motrin*) 800 Mg Tab, 800 MG PO Q6, #30 TAB Prov:RAVIN CASTILLO PA-C 08/23/18 Methylprednisolone* (Medrol* DOSE PACK) 4 Mg/Dose-Pack Tab.ds.pk, 4 MG PO . DIRECTED, #1 PACKET Prov:RAVIN CASTILLO PA-C 08/23/18 Amoxicillin/Potassium Clav (Amox-Clav 875-125 mg Tablet) 875-125 mg Tab, 1 TAB PO BID for 7 Days, #14 TAB Prov:RAVIN CASTILLO PA-C 08/23/18 Acetaminophen* (Tylophen*) 500 Mg Capsule, 1 CAP PO Q6H PRN for PAIN AND OR ELEVATED TEMP, #20 CAP Prov:RICHAR MAJOR MD 08/21/18 Amoxicillin* (Amoxicillin*) 500 Mg Cap, 500 MG PO TID for 10 Days, CAP Prov:RICHAR MAJOR MD 08/21/18 Ibuprofen* (Motrin*) 600 Mg Tab, 600 MG PO Q6H PRN for PAIN AND OR ELEVATED TEMP, #30 TAB Prov:JULIO ROTHMAN NP 10/06/17 Ibuprofen* (Ibuprofen*) 600 Mg Tablet, 600 MG PO Q6, #60 TAB 0 Refills Prov:MO BANSAL MD 06/14/17 Allergies Allergies: Coded Allergies: No Known Allergy (Unverified , 01/04/17) PMhx/Soc History of Surgery: No (1 KIDNEY ) Anesthesia Reaction: No Hx Neurological Disorder: No Hx Respiratory Disorders: No Hx Cardiac Disorders: No Hx Psychiatric Problems: No Hx Miscellaneous Medical Probl: No Hx Alcohol Use: No Hx Substance Use: No Hx Tobacco Use: No Smoking Status: Never smoker FmHx Family History: No diabetes, No coronary disease, No other Physical Exam Vitals Vital Signs Date Temp Pulse Resp B/P (MAP) Pulse Ox O2 O2 Flow FiO2 Time Delivery Rate 08/23/18 100.1 105 19 102/58 96 Room Air 16:25 (73) 08/23/18 102.3 124 18 121/77 98 14:08 (92) Physical Exam GENERAL: The patient is well-appearing, well-nourished, in no acute distress HEENT: Atraumatic. Conjunctivae are pink. Pupils equal, round, and reactive to light. There is no scleral icterus. Tympanic membranes clear bilaterally. Oropharynx erythematous with exudate. Tonsils are not touching. Uvula midline.. No nystagmus or photophobia. NECK: C-spine is soft and supple. There is no meningismus. There is no cervical lymphadenopathy. CHEST: Clear to auscultation bilaterally. There are no rales, wheezes or rhonchi. HEART: Regular rate and rhythm. No murmurs, clicks, rubs or gallops. Result Diagram: 08/23/18 1439 08/23/18 1439 Results 24 hrs Laboratory Tests Test 08/23/18 14:39 08/23/18 14:40 White Blood Count 8.7 10^3/ul Red Blood Count 4.56 10^6/ul Hemoglobin 12.8 g/dl Hematocrit 39.3 % Mean Corpuscular Volume 86.2 fl Mean Corpuscular Hemoglobin 28.1 pg Mean Corpuscular Hemoglobin Concent 32.6 g/dl Red Cell Distribution Width 13.5 % Platelet Count 209 10^3/UL Mean Platelet Volume 9.9 fl Immature Granulocytes % 0.300 % Neutrophils % 73.4 % Lymphocytes % 13.4 % Monocytes % 12.4 % Eosinophils % 0.0 % Basophils % 0.5 % Nucleated Red Blood Cells % 0.0 /100WBC Immature Granulocytes # 0.030 10^3/ul Neutrophils # 6.4 10^3/ul Lymphocytes # 1.2 10^3/ul Monocytes # 1.1 10^3/ul Eosinophils # 0.0 10^3/ul Basophils # 0.0 10^3/ul Nucleated Red Blood Cells # 0.0 10^3/ul Sodium Level 137 mmol/L Potassium Level 4.1 mmol/L Chloride Level 101 mmol/L Carbon Dioxide Level 25 mmol/L Anion Gap 11 Blood Urea Nitrogen 9 mg/dl Creatinine 0.63 mg/dl Est Glomerular Filtrat Rate mL/min > 60 mL/min Glucose Level 115 mg/dl Lactic Acid Level 1.2 mmol/L Calcium Level 9.5 mg/dl Total Bilirubin 0.8 mg/dl Direct Bilirubin 0.00 mg/dl Indirect Bilirubin 0.8 mg/dl Aspartate Amino Transf (AST/SGOT) 29 IU/L Alanine Aminotransferase (ALT/SGPT) 33 IU/L Alkaline Phosphatase 130 IU/L Total Protein 8.1 g/dl Albumin 4.5 g/dl Globulin 3.60 g/dl Albumin/Globulin Ratio 1.25 Serum HCG, Qualitative NEGATIVE Monoscreen Negative Urine Color YELLOW Urine Clarity SLIGHTLY CLOUDY Urine pH 6.0 Urine Specific [place] 1.027 Urine Ketones 1+ mg/dL Urine Nitrite NEGATIVE mg/dL Urine Bilirubin NEGATIVE mg/dL Urine Urobilinogen 1+ mg/dL Urine Leukocyte Esterase NEGATIVE Marry/ul Urine Microscopic RBC 4 /HPF Urine Microscopic WBC 1 /HPF Urine Squamous Epithelial Cells MODERATE /HPF Urine Bacteria FEW /HPF Urine Mucus FEW /HPF Urine Hemoglobin NEGATIVE mg/dL Urine Glucose NEGATIVE mg/dL Urine Total Protein 1+ mg/dl Current Medications Medications Dose Sig/Karina Start Time Status Last (Trade) Ordered Route PRN Stop Time Admin Dose Reason Admin Sodium 1,000 ml @ Q1H STAT 08/23/18 DC 08/23/18 Chloride 1,000 mls/hr IV 14:30 14:46 08/23/18 15:29 Ondansetron 4 mg ONCE STAT 08/23/18 DC 08/23/18 HCl (Zofran IV 14:30 14:47 Inj) 08/23/18 14:31 Ketorolac 30 mg ONCE STAT 08/23/18 DC 08/23/18 Tromethamine IV 14:30 14:47 (Toradol) 08/23/18 14:31 10 mg ONCE ONCE 08/23/18 DC 08/23/18 Dexamethasone IV 14:30 14:47 (Decadron) 08/23/18 14:31 Ceftriaxone 50 ml @ ONCE ONCE 08/23/18 DC 08/23/18 Sodium 100 mls/hr IVPB 14:30 14:46 08/23/18 14:59 Procedures/MDM Course: 1 L normal saline given the PD. IV Rocephin given in ED. Monospot negative. Strep swab negative. Toradol and Decadron given in ED MDM: 23-year-old female presenting with exudative tonsillitis. Patient be disch arged with antibiotics. I have low suspicion for peritonsillar retropharyngeal abscess. Patient is believed to have bacterial etiology. Patient is discharged with steroids to help reduce inflammation of the tonsils. Patient is told symptoms change or worsen to return immediately to the ER. All questions answered at discharge Departure Diagnosis: Primary Impression: Sore throat Condition: Stable Patient Instructions: Self-Care for Sore Throats Referrals: [facility] YOU HAVE RECEIVED A MEDICAL SCREENING EXAM AND THE RESULTS INDICATE THAT YOU DO NOT HAVE A CONDITION THAT REQUIRES URGENT TREATMENT IN THE EMERGENCY DEPARTMENT. FURTHER EVALUATION AND TREATMENT OF YOUR CONDITION CAN WAIT UNTIL YOU ARE SEEN IN YOUR DOCTORS OFFICE WITHIN THE NEXT 1-2 DAYS. IT IS YOUR RESPONSIBILITY TO MAKE AN APPOINTMENT FOR FOLOW-UP CARE. IF YOU HAVE A PRIMARY DOCTOR --you should call your primary doctor and schedule an appointment IF YOU DO NOT HAVE A PRIMARY DOCTOR YOU CAN CALL OUR PHYSICIAN REFERRAL HOTLINE AT IF YOU CAN NOT AFFORD TO SEE A PHYSICIAN YOU CAN CHOSE FROM THE FOLLOWING [facility] [address] [facility] [address] [facility] [address] [facility] [address] [facility] [address] [facility]. [facility]. [address] Additional Instructions: FOLLOW UP WITH YOUR PRIMARY CARE PHYSICIAN TOMORROW.Return to this facility if you are not improving as expected. RAVIN CASTILLO PA-C August 24, 2018 12:48
== END 2018-08-23 16:29 | disposition home or self-care (01) ==
LOC: FTE 13:58
DX: J02.9 Acute pharyngitis, unspecified (principal)
CPT/HCPCS: 36415; 80053; 81001; 83605; 84703; 85025; 86308; 87880; 96374; 96375; J0696; J1100; J1885; J2405; J7030; Z7502